=== PATIENT | female | born 1965 | race Two or more races ===

== ENCOUNTER 2019-09-21 05:12 | Day surgery (SDC) | payer OTHER ==
[2019-09-20 14:39] VITALS: BMI 31.1
[2019-09-21] MEDS ORDERED: SUCCINYLCHOLINE CHLORIDE 200 MG/10 ML SYRINGE ONE (07:26)
[2019-09-21] MEDS ORDERED: PROPOFOL 20 ML ONE (07:26)
[2019-09-21] MEDS ORDERED: MIDAZOLAM HCL 2 MG/2 ML SINGLE DOSE VIAL ONE (07:26)
--- NOTE | 2019-09-21 07:40 | HP ---
Admitting History and Physical - Admission Chief Complaint: Vaginal bleeding History of Present Illness: 54 yo Para 2 with post menopausal bleeding, is pre op for D&C Hysteroscopy. History Source: Patient Limitations to Obtaining History: No Limitations - Past Medical History ...LMP: 12/19/13 ...: No ...Para: 2 - Past Surgical History Additional Past Surgical History: Bilateral tubal ligation - Smoking History Smoking history: Never smoked Have you smoked in the past 12 months: No - Alcohol/Substance Use Hx Alcohol Use: Yes (SOCIAL) - Social History History of Recent Travel: No Home Medications - Allergies Allergies/Adverse Reactions: Allergies Allergy/AdvReac Type Severity Reaction Status Date / Time No Known Drug Allergies Allergy Verified 09/20/19 14:39 CATS/DOGS/DUST Allergy STUFFY NOSE Uncoded 09/20/19 14:39 - Home Medications Home Medications: Ambulatory Orders Loratadine [Claritin -] 10 mg PO HS 03/22/13 Montelukast Na [Singulair -] 10 mg PO HS 03/22/13 Multivitamin [Multivitamins] 1 each PO DAILY 03/22/13 Calcium Carbonate/Vitamin D3 [Calcium 500 + Vit D Caplet] 500 mg PO DAILY 03/26/13 Family Medical History Family History: Unremarkable Review of Systems - Review of Systems Constitutional: reports: No Symptoms Eyes: reports: No Symptoms HENT: reports: No Symptoms Neck: reports: No Symptoms Cardiovascular: reports: No Symptoms Respiratory: reports: No Symptoms Gastrointestinal: reports: No Symptoms Genitourinary: reports: Vaginal Bleeding Breasts: reports: No Symptoms Reported Musculoskeletal: reports: No Symptoms Neurological: reports: No Symptoms Pain Intensity: 0 Physical Examination Vital Signs: Vital Signs Temperature 98.1 F 09/21/19 06:29 Pulse Rate 80 09/21/19 06:29 Respiratory Rate 16 09/21/19 06:29 Blood Pressure 144/86 09/21/19 06:29 O2 Sat by Pulse Oximetry (%) 99 09/21/19 06:29 Constitutional: Yes: No Distress Eyes: Yes: Conjunctiva Clear HENT: Yes: Atraumatic Neck: Yes: Supple Cardiovascular: Yes: Regular Rate and Rhythm Respiratory: Yes: Regular Gastrointestinal: Yes: Normal Bowel Sounds Breast(s): Yes: WNL Extremities: Yes: WNL Integumentary: Yes: WNL Neurological: Yes: Alert, Oriented ...Motor Strength: WNL Psychiatric: Yes: Alert, Oriented Problem List - Problems (1) Post-menopausal bleeding Problems reviewed: Yes Code(s): N95.0 - POSTMENOPAUSAL BLEEDING Assessment/Plan Post menopausal bleeding Pre op for D&C Hysteroscopy Consent signed Anesthesia to see patient
[2019-09-21] MEDS ORDERED: oxyCODONE HCL 5 MG TABLET PO PRN (08:15)
[2019-09-21] MEDS ORDERED: ONDANSETRON 4 MG/2 ML VIAL IVPUSH PRN (08:15)
[2019-09-21] MEDS ORDERED: LACTATED RINGERS SOLUTION 1,000 ML IV SCH (08:15)
[2019-09-21] MEDS ORDERED: ACETAMINOPHEN 325 MG TABLET (FP) PO PRN (08:15)
--- NOTE | 2019-09-21 08:19 | OP ---
Operative Note - Note: Operative Date: 09/21/19 Pre-Operative Diagnosis: Postmenopausal bleeding Operation: D&C Hysteroscopy Surgeon: Ronna Brannon Anesthesia: General Specimens Removed: Endometrial curettings Estimated Blood Loss (mls): 5 Operative Report Dictated: Yes
[2019-09-21 10:40] VITALS: BP 121/85; PULSE 78; TEMP 97.7
--- NOTE | 2019-09-21 19:44 | OP ---
DATE OF OPERATION: 09/21/2019 PREOPERATIVE DIAGNOSIS: Postmenopausal bleeding. POSTOPERATIVE DIAGNOSIS: Postmenopausal bleeding. PROCEDURE: Dilation and curettage hysteroscopy. SURGEON: Ronna Brannon MD. ANESTHESIA: General. COMPLICATIONS: None. ESTIMATED BLOOD LOSS: Less than 5 mL. DESCRIPTION OF PROCEDURE: The patient was taken to the operating room, where general anesthesia was administered. Patient was then placed in lithotomy position. She was then prepped and draped in proper sterile fashion. A weighted speculum was placed in the vagina. The anterior lip of the cervix was grasped with a single-toothed tenaculum, and the uterus was sounded to 6 cm. Then the 5-mm hysteroscope was gently introduced into the uterine cavity. There was no polyp noted, no mass noted in the cavity. Then, sharp curettage was then performed, and then the instruments were removed. The patient was taken out of lithotomy position. She was taken to PACU in stable condition. PATHOLOGY: Endometrial curettings. Tiffanie [id number]
--- NOTE | 2019-09-24 17:05 | PATH ---
Surgical Pathology Report Patient Name: PRABHJOT BRYANT [facility]. Rec. #: [id number] /Age/Gender: 1965 (Age: 54) / F Account: [id number] Location: [facility] Taken: 09/21/2019 Received: 09/21/2019 Reported: 09/24/2019 Physicians: Ronna Brannon M.D. Specimen(s) Received ENDOMETRIAL CURETTINGS Clinical History Postmenopausal bleeding Final Diagnosis ENDOMETRIAL CURETTINGS, DILATION AND CURETTAGE: FEW STRIPS OF ENDOMETRIAL GLANDS CONSISTENT WITH ATROPHIC ENDOMETRIUM, BENIGN CERVICAL SQUAMOUS MUCOSA WITH FOCI OF ACUTE INFLAMMATION, AND BENIGN ENDOCERVICAL TISSUE ADMIXED WITH MUCUS. Electronically Signed Meena Ordoñez M.D. Gross Description Received in formalin labeled "endometrial curettings," is a 1.4 x 0.9 x 0.2 cm aggregate of blood-tinged mucus, possibly containing soft tissue fragments. The formalin is filtered and the specimen is entirely submitted in one cassette. /09/21/2019 merged with [facility]/09/21/2019
== END 2019-09-21 09:55 | disposition home or self-care (01) ==
LOC: JASU-SURG 05:12
PROVIDERS: ATTEND Obstetrics & Gynecology
PROC: 0UDB7ZX Extraction of Endometrium, Via Natural or Artificial Opening, Diagnostic (ICD-10-PCS; principal; 2019-09-21 07:30)
PROC: 0UJD8ZZ Inspection of Uterus and Cervix, Via Natural or Artificial Opening Endoscopic (ICD-10-PCS; 2019-09-21 07:30)
DX: N95.0 Postmenopausal bleeding (principal)
CPT/HCPCS: 88305-TC; 94760

== ENCOUNTER 2021-02-03 04:37 | Day surgery (SDC) | payer OTHER ==
[2021-02-02 14:10] VITALS: BMI 29.0
[2021-02-03 10:27] VITALS: TEMP 98.7
[2021-02-03 11:01] VITALS: BP 150/91; PULSE 77
== END 2021-02-03 11:09 | disposition home or self-care (01) ==
LOC: JASU-ENDO 04:37
PROVIDERS: ATTEND Internal Medicine Gastroenterology
PROC: 0DBN8ZX Excision of Sigmoid Colon, Via Natural or Artificial Opening Endoscopic, Diagnostic (ICD-10-PCS; principal; 2021-02-03 09:30)
DX: Z12.11 Encounter for screening for malignant neoplasm of colon (principal); D12.5 Benign neoplasm of sigmoid colon; K64.8 Other hemorrhoids; K57.30 Diverticulosis of large intestine without perforation or abscess without bleeding
CPT/HCPCS: 88305-TC